=== PATIENT | female | born 1940 | race Caucasian/White ===

== ENCOUNTER 2016-06-23 | Outpatient (CLI) | END 2016-06-23 20:35 | disposition EMS.NT ==

== ENCOUNTER 2016-08-20 13:15 | Outpatient (CLI) | payer MEDICARE, OTHER | END 2016-08-20 13:16 | disposition home or self-care (01) | DX: Z12.31 Encounter for screening mammogram for malignant neoplasm of breast (principal); Z80.3 Family history of malignant neoplasm of breast; M81.0 Age-related osteoporosis without current pathological fracture; Z79.52 Long term (current) use of systemic steroids | CPT/HCPCS: 77080; 77081; G0202 ==

== ENCOUNTER 2016-08-20 13:18 | Outpatient (CLI) | payer MEDICARE, OTHER | END 2016-08-20 13:19 | disposition home or self-care (01) | DX: Z79.52 Long term (current) use of systemic steroids (principal); M81.0 Age-related osteoporosis without current pathological fracture ==

== ENCOUNTER 2017-10-10 11:09 | Outpatient (CLI) | payer MEDICARE, OTHER ==
--- NOTE | 2017-10-10 13:42 | XRAY Report ---
COMPLETE CERVICAL SPINE WITH FLEXION AND EXTENSION: 10/10/2017 CLINICAL INDICATION: History of rheumatoid arthritis, new neck pain. FINDINGS: AP, lateral neutral, lateral flexion, lateral extension, oblique, odontoid views of the cervical spine demonstrate anterolisthesis of C2 on C3 and C3 on C4, both of which resolved on extension and increase on flexion, compatible with ligamentous laxity at C2-3 and C3-4. Extensive degenerative disk and facet disease is present, with bilateral osseous neural foraminal narrowing, worst at C3-4. There is no evidence of acute fracture. The prevertebral soft tissues appear unremarkable. IMPRESSION: LIGAMENTOUS LAXITY AT C2-3 AND C3-4. EXTENSIVE DEGENERATIVE CHANGES. NO EVIDENCE OF FRACTURE. TD: 10/10/2017 13:41
== END 2017-10-10 11:10 | disposition home or self-care (01) ==
LOC: DI.S 11:09
PROVIDERS: ATTEND Internal Medicine
DX: M50.30 Other cervical disc degeneration, unspecified cervical region (principal); M24.28 Disorder of ligament, vertebrae; M06.9 Rheumatoid arthritis, unspecified
CPT/HCPCS: 72052

== ENCOUNTER 2018-01-07 15:42 | Outpatient (CLI) | payer MEDICARE, OTHER | END 2018-01-07 15:43 | disposition EMS.NT | LOC: EMS 15:42 | PROVIDERS: ATTEND Surgery | DX: R68.89 Other general symptoms and signs (principal) ==

== ENCOUNTER 2021-04-19 13:49 | Emergency (ER) | payer MEDICARE, OTHER ==
[2021-04-19 14:05] VITALS: BP 103/74
--- NOTE | 2021-04-19 14:39 | ED Physician Documentation ---
History of Present Illness - Stated complaint Stated Complaint: LEFT LEG SWELLING - Chief complaint Chief Complaint: Ext Problem - History obtained from History obtained from: Patient - History of Present Illness Timing: How many days ago (2) Pain level max: 5 Pain level now: 4 - Additonal information Additional information: Patient is a 80-year-old female who presents to the emergency department with left leg swelling and pain. She had foot surgery about 6 weeks ago on the left foot. History of DVT in that same leg previously. Patient also states that she received her maternal Covid vaccine yesterday and noticed the swelling about 3 hours later. Review of Systems Ten Systems: 10 systems reviewed and negative Constitutional: denies: Fever, Chills Respiratory: denies: Cough GI: denies: Vomiting, Diarrhea Skin: denies: Rash Musculoskeletal: denies: Neck pain, Back pain Neurologic: denies: Headache PD PAST MEDICAL HISTORY - Past Medical History Past Medical History: Yes Psych: Depression, Anxiety Musculoskeletal: Rheumatoid arthritis - Past Surgical History Past Surgical History: Yes Ortho: Knee replacement, Shoulder arthroplasty, Spine surgery /STICKER ON: Hysterectomy - Present Medications Home Medications: Ambulatory Orders Medication Instructions Recorded Confirmed Celecoxib [CeleBREX] 100 mg BID 12/22/15 12/22/15 Minocycline HCl 100 mg PO DAILY 12/22/15 12/22/15 buPROPion [Wellbutrin Sr] 150 mg PO DAILY 12/22/15 12/22/15 clonazePAM [Clonazepam] 0.125 mg DAILY 12/22/15 12/22/15 - Allergies Allergies/Adverse Reactions: Allergies Allergy/AdvReac Type Severity Reaction Status Date / Time No Known Drug Allergies Allergy Verified 04/19/21 14:05 - Social History Does the pt smoke?: No Smoking Status: Never smoker Does the pt drink ETOH?: No Does the pt have substance abuse?: No - Immunizations Immunizations are current?: Yes PD ED PE NORMAL - Vitals Vital signs reviewed: Yes - General General: Alert and oriented X 3, No acute distress - HEENT HEENT: Moist mucous membranes - Cardiac Cardiac: RRR - Respiratory Respiratory: No respiratory distress, Clear bilaterally - Derm Derm: Warm and dry - Extremities Extremities: Other (TTP L LE, swelling just above the knee on the lateral aspect. no calf pain or swelling. ) - Neuro Neuro: Alert and oriented X 3 Results - Vitals Vitals: Vital Signs - 24 hr 04/19/21 14:00 Temperature 36.7 C Heart Rate 82 Respiratory 16 Rate Blood Pressure 103/74 O2 Saturation 100 Oxygen O2 Source Room air - Rads (name of study) Duplex ultrasound left lower extremity Radiology: Final report received, EMP read contemporaneously, See rad report (No DVT. Nonspecific fluid collection within the left anterior leg. Anechoic) PD MEDICAL DECISION MAKING - ED course Complexity details: reviewed results, re-evaluated patient, considered differential, d/w patient ED course: 80-year-old female with 2 small fluid collections above the left knee. This appears to be consistent with her pain. Unclear etiology. No DVT. Desean bandage was applied. Patient states she does not do well with narcotic pain medications. We will utilize Motrin and Tylenol at home for pain. Patient counseled regarding signs and symptoms for which I believe and urgent re- evaluation would be necessary. Patient with good understanding of and agreement to plan and is comfortable going home at this time This document was made in part using voice recognition software. While efforts are made to proofread this document, sound alike and grammatical errors may occur. Departure - Departure Disposition: 01 Home, Self Care Clinical Impression: Leg swelling Condition: Good Instructions: ED Hematoma Follow-Up: HUY ACE MD [Primary Care Provider] - Within 1 week Comments: Please follow-up with your doctor for further care. Your ultrasound does not show any blood clots today. There does appear to be a fluid collection, this could be a bruising such as hematoma. This should improve on its own. Would recommend compression, ice and further monitoring. Return if you worsen. Discharge Date/Time: 04/19/21 17:24
--- NOTE | 2021-04-19 17:00 | Ultrasound Report ---
PROCEDURE: Duplex Ext Veins Left INDICATIONS: LLE pain/swelling TECHNIQUE: Real-time imaging, as well as color and pulse Doppler interrogation, were performed of the lower extr emity deep veins from the inguinal ligament to the popliteal fossa. COMPARISON: None. FINDINGS: The deep veins are normally compressible, and free of intraluminal thrombus. Color and pu lse Doppler demonstrate normal phasic intraluminal flow. There is normal augmentation response to di stal compression maneuver. 2 separate fluid collections are noted along the area of clinical concern. The lateral fluid collecti on measures 3.2 x 0.3 x 1.5 cm. The medial fluid collection measures 2.9 x 0.5 x 1.7 cm. These are pr edominantly anechoic in nature. IMPRESSION: No evidence of left lower extremity deep venous embolus as. Nonspecific fluid collections noted within the posterior leg. Reviewed by: Ramesh Robertson DO on 04/19/2021 3:59 PM JUANCARLOS Approved by: aRmesh Robertson DO on 04/19/2021 3:59 PM JUANCARLOS Station ID: [id number]
== END 2021-04-19 17:24 | disposition home or self-care (01) ==
LOC: ED 13:49
DX: R60.0 Localized edema (principal)
CPT/HCPCS: 99282; 99284

== ENCOUNTER 2021-08-17 15:01 | Outpatient (CLI) | payer MEDICARE, OTHER ==
--- NOTE | 2021-08-19 12:10 | Mammography Report ---
BILATERAL DIGITAL SCREENING MAMMOGRAM 3D/2D: 08/17/2021 CLINICAL: Routine screening. Family history of breast cancer. Comparison is made to exams dated: 08/20/2016 mammogram and 10/24/2013 mammogram - [facility]. The tissue of both breasts is heterogeneously dense. This may lower the sensitivity of mamm ography. There are benign vascular calcifications in both breasts. There also are benign post operative findi ngs and biopsy clip in the left breast. No significant masses, calcifications, or other findings are seen in either breast. There has been no significant interval change. IMPRESSION: BENIGN There is no mammographic evidence of malignancy. A 1 year screening mammogram is recommended. This exam was interpreted at Station ID: [id number]. NOTE: For mammograms, a report in lay terms will be sent to the patient. Approximately 15% of breast malignancies will not be visualized mammographically. In the management of a palpable breast mass, a negative mammogram must not discourage biopsy of a clinically suspicious lesion. Electronically Signed By: Tha Philip M.D. [facility]:08/18/2021 08:04:09 ACR BI-RADS Category 2: Benign Finding(s) 3342F PARENCHYMAL PATTERN: (D) - The breast(s) demonstrate(s) heterogeneously dense fibroglandular sandra [place]. BI-RADS CATEGORY: (2) - 2 RECOMMENDATION: (ANNUAL) - Recommend routine annual screening mammography. [id number] 1 year screening LATERALITY: (B)
== END 2021-08-17 15:02 | disposition home or self-care (01) ==
LOC: DI.S 15:01
DX: Z12.31 Encounter for screening mammogram for malignant neoplasm of breast (principal); Z80.3 Family history of malignant neoplasm of breast

== ENCOUNTER 2022-12-01 07:00 | Outpatient (CLI) | payer MEDICARE, OTHER ==
--- NOTE | 2022-12-01 19:04 | XRAY Report ---
PROCEDURE: Hip w/Pelvis 2-3V RT INDICATIONS: RIGHT HIP PAIN TECHNIQUE: AP pelvis with lateral view(s) of the right hip(s). COMPARISON: None. FINDINGS: Bones: No fractures or dislocations. No suspicious bony lesions. Moderate bilateral hip joint space narrowing. No marginal osteophyte. Unremarkable femoral head contour. Lower lumbar spine fusion and instrumentation. Soft tissues: No suspicious soft tissue calcifications or masses. IMPRESSION: Moderate bilateral hip joint space narrowing without marginal osteophytes Reviewed by: Juan Carlos Bradshaw MD on 12/01/2022 6:03 PM AKDT Approved by: Juan Carlos Bradshaw MD on 12/01/2022 6:03 PM AKDT Station ID: [id number]
== END 2022-12-01 23:59 | disposition home or self-care (01) ==
LOC: DI.S 07:00
PROVIDERS: ATTEND Nurse Practitioner
DX: M16.0 Bilateral primary osteoarthritis of hip (principal)

== ENCOUNTER 2023-03-28 16:14 | Outpatient (CLI) | payer MEDICARE, OTHER | END 2023-03-28 23:59 | disposition short-term general hospital (02) | LOC: EMS 16:14 | DX: G89.18 Other acute postprocedural pain (principal) | CPT/HCPCS: A0425; A0427; A0888 ==

== ENCOUNTER 2023-07-18 12:54 | Outpatient (CLI) | payer MEDICARE, OTHER ==
--- NOTE | 2023-07-18 20:34 | XRAY Report ---
PROCEDURE: Bone Length Study INDICATIONS: ACQUIRED SHORT LEG TECHNIQUE: A single frontal standing view of both lower extremities acquired, with measuring ruler s ituated between the legs. COMPARISON: None FINDINGS: Right: Total leg length is 79.16 cm. Left: Total leg length is 79.73 cm. Bilateral knee prosthesis are seen. Post fusion changes in visualized lumbar spine are also noted. IMPRESSION: Bilateral leg length as above. Reviewed by: Robbie Dai MD on 07/18/2023 8:33 PM PST Approved by: Robbie Dai MD on 07/18/2023 8:33 PM PST Station ID: [id number]
== END 2023-07-18 12:55 | disposition home or self-care (01) ==
LOC: DI.N 12:54
PROVIDERS: ATTEND Podiatrist
DX: M21.70 Unequal limb length (acquired), unspecified site (principal); Z96.653 Presence of artificial knee joint, bilateral; Z98.1 Arthrodesis status

== ENCOUNTER 2024-02-13 08:00 | Outpatient (CLI) | payer MEDICARE, OTHER | END 2024-02-13 23:59 | disposition home or self-care (01) | LOC: LAB.S 08:00 | PROVIDERS: ATTEND Physician Assistant | DX: N39.0 Urinary tract infection, site not specified (principal) | CPT/HCPCS: 87086; 87181 ==